=== PATIENT | male | born 1980 | race Caucasian/White ===

== ENCOUNTER 2018-06-29 10:11 | Day surgery (SDC) | payer OTHER ==
[~2018-06-29] VITALS: Ht 177.8 cm; Wt 71.7 kg
[~2018-06-29 10:11] MED LIST: CARISOPRODOL350 MG PO; CIPRO500 MG PO; CLEOCIN150 MG PO; DICLOFENAC SODI75 MG PO; DILAUDID2 MG PO; ENDOCET 5-3251 EACH PO; EXCEDRIN MIGRA1 EAC1 PO; EXCEDRIN MIGRA1 EAC3 PO; EXCEDRIN MIGRA1 EACH PO; FLOMAX0.4 MG PO; HYDROCODON-ACE1 EAC7 PO; IBU600 MG PO; IBUPROFEN600 MG PO; LYRICA100 MG PO; MELATONIN1 MG PO; MOTRIN800 MG PO; OXAYDO5 MG PO; PANTOPRAZOLE SO40 MG PO; PERCOCET 5/31 TABLET PO; PREDNISONE20 MG PO; TAMSULOSIN HCL0.4 MG PO; TUMS SMOOTHIES300 MG PO; VALIUM5 MG PO; ZOFRAN4 MG PO
[2018-06-29 10:39] VITALS: BP 125/75
[2018-06-29 14:00] VITALS: BP 148/84
[2018-06-29 15:35] VITALS: BP 115/63
== END 2018-06-29 15:40 | disposition home or self-care (01) ==
LOC: SDC 10:11
PROC: 0TC78ZZ Extirpation of Matter from Left Ureter, Via Natural or Artificial Opening Endoscopic (ICD-10-PCS; principal; 2018-06-29)
PROC: 0TF78ZZ Fragmentation in Left Ureter, Via Natural or Artificial Opening Endoscopic (ICD-10-PCS; principal; 2018-06-29)
PROC: BT1F1ZZ Fluoroscopy of Left Kidney, Ureter and Bladder using Low Osmolar Contrast (ICD-10-PCS; principal; 2018-06-29)
PROC: 0T778DZ Dilation of Left Ureter with Intraluminal Device, Via Natural or Artificial Opening Endoscopic (ICD-10-PCS; principal; 2018-06-29)
DX: N13.2 Hydronephrosis with renal and ureteral calculous obstruction (principal); F17.200 Nicotine dependence, unspecified, uncomplicated; Z79.82 Long term (current) use of aspirin
CPT/HCPCS: 74420; 82365 90; C1769; C2625; J0690; J2250; J3010